=== PATIENT | male | born 1970 | race Caucasian/White ===

== ENCOUNTER → 2018-12-13 | Outpatient (CLI) | payer OTHER ==
[~2018-12-13] MED LIST: ASPI-1471 PO; OMEG-23 PO; ONDA4TAB97 PO; PSEU120T69 PO
--- NOTE | 2018-12-13 17:22 | RADIOLOGY IMAGING REPORT ---
FACILITY: [facility] [place] PATIENT NAME: Leonel Glover : 1970 MR: [id number] V: [id number] EXAM DATE: ORDERING PHYSICIAN: EMILY ONEAL TECHNOLOGIST: Location: [facility] - [place], [place] Patient: Leonel Glover : 1970 Visit/Account:[id number] Date of Sevice: 12/13/2018 EXAMINATION: Right shoulder, 4 views 12/13/2018 4:50 PM HISTORY: Chronic right shoulder pain. COMPARISON: None FINDINGS: Images include internally and extra rotated frontal, axillary, and scapular Y projections. Bony structures of the shoulder are intact without fracture or any other acute bony finding. Artic ular relationships are well-preserved. No substantial AC joint spurring. Subacromial joint space is well-preserved. IMPRESSION: Unremarkable right shoulder. Report Dictated By: Neil Cameron MD at 12/13/2018 5:17 PM Report E-Signed By: Neil Cameron MD at 12/13/2018 5:18 PM WSN:[email or web address]
== END ==
LOC: RAD 16:34
PROVIDERS: ATTEND Family Medicine
DX: M25.511 Pain in right shoulder (principal)